=== PATIENT | male | born 2005 | race Caucasian/White ===

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

== ENCOUNTER 2024-01-06 14:00 | Emergency (ER) | payer MEDICAID ==
[~2024-01-06] VITALS: Ht 170.2 cm; Wt 73.0 kg
[~2024-01-06 14:00] MED LIST: PROT40 MT; SUCR1TAB MT
[2024-01-06 14:14] VITALS: O2SAT 100
[2024-01-06 14:39] LABS: CLARITY URINE CLEAR (CLEAR); COLOR URINE YELLOW (YELLOW); GLUCOSE URINE NEGATIVE (NEGATIVE); KETONES URINE NEGATIVE (NEGATIVE); LEUKOCYTE ESTERASE URINE NEGATIVE (NEGATIVE); NITRITE URINE NEGATIVE (NEGATIVE); OCCULT BLOOD URINE NEGATIVE (NEGATIVE); PROTEIN URINE NEGATIVE (NEGATIVE); SPECIFIC GRAVITY URINE 1.002 (1.005-1.030)
[2024-01-06] MEDS: SODIUM CHLORIDE 0.9% 1,000 ML IV ONE (15:00)
[2024-01-06] MEDS: PANTOPRAZOLE SODIUM 40 MG/VIAL IV ONE (15:00)
[2024-01-06] MEDS: ACETAMINOPHEN 325MG TABLET PO ONE (15:00)
[2024-01-06 16:49] LABS: BASOPHILS % 0.4 % (0.0-2.0); DIFFERENTIAL COMMENT 0; EOSINOPHILS % 0.1 % (0.0-5.0); HEMATOCRIT. 25.7 % (42.0-52.0); HEMOGLOBIN. 8.3 g/dL (14.0-18.0); LYMPHOCYTES % 9.6 % (20.0-50.0); MEAN CORPUSCULAR HEMOGLOBIN 24.6 pg (28.0-32.0); MEAN CORPUSCULAR HGB CONC 32.3 g/dL (31.0-37.0); MEAN CORPUSCULAR VOLUME 76.2 fL (80.0-94.0); MEAN PLATELET VOLUME 7.5 fl (7.4-10.4); MONOCYTES % 13.5 % (2.0-8.0); NEUTROPHILS % 76.4 % (40.0-76.0); PLATELET 386 x1000/uL (130-400); RED BLOOD CELL COUNT 3.37 mill/uL (4.7-6.1); RED CELL DISTRIBUTION WIDTH 15.5 % (11.6-14.6); WHITE BLOOD COUNT 7.6 x1000/uL (4.5-11.0)
[2024-01-06 16:58] LABS: PROTHROMBIN TIME 11.5 sec (9.6-11.0)
[2024-01-06 17:04] LABS: CHLORIDE 104 mEq/L (98-107); POTASSIUM 3.4 mEq/L (3.5-5.1); SODIUM 140 mEq/L (136-145)
[2024-01-06 17:05] LABS: CALCIUM 9.4 mg/dL (8.7-10.4); CARBON DIOXIDE 29 mEq/L (21-32)
[2024-01-06 17:10] LABS: GLUCOSE 107 mg/dL (70-105); UREA NITROGEN BLOOD 8 mg/dL (9-23)
[2024-01-06 17:12] LABS: ALANINE AMINOTRANSFERASE 24 IU/L (10-49); ALBUMIN 4.7 g/dL (3.2-4.8); ASPARTATE AMINOTRANSFERASE 25 IU/L (<34); BILIRUBIN DIRECT 0.4 mg/dL (<=3.0); PHOSPHORUS 2.6 mg/dL (2.5-4.9)
[2024-01-06 17:13] LABS: BILIRUBIN TOTAL 1.3 mg/dL (0.1-1.0)
[2024-01-06 17:23] LABS: ETHANOL BLOOD < 10 mg/dL (<10); TROPONIN I HIGH SENSITIVITY < 4 ng/L (3.0-53)
[2024-01-06 21:00] VITALS: BP 115/71; PULSE 86; RESP 18; TEMP 37.16964; O2SAT 100
[2024-01-06 21:07] LABS: TROPONIN I HIGH SENSITIVITY < 4 ng/L (3.0-53)
== END 2024-01-06 21:02 | disposition home or self-care (01) ==
LOC: ER 14:00
DX: K29.70 Gastritis, unspecified, without bleeding (principal); R25.2 Cramp and spasm
CPT/HCPCS: 80076; 80048; 81003; 80320; 83690; 83735; 84100; 85025; 85610; 86850; 86900; 86901; 84484; 36415; 71045; 70450; 74176; 93005; 96365; 99285; J2470; Z7610; G0480

== ENCOUNTER 2024-01-23 23:18 | Emergency (ER) | payer MEDICAID, OTHER ==
[~2024-01-23] VITALS: Ht 170.2 cm; Wt 73.0 kg
[2024-01-23 23:44] VITALS: O2SAT 100
[2024-01-24 00:06] VITALS: BP 143/91; PULSE 94; RESP 18; TEMP 98; O2SAT 100
[2024-01-24] MEDS ORDERED: BACITRACIN ZINC OINT UDPKT TOP ONE (00:30)
[2024-01-24] MEDS ORDERED: LIDOCAINE HCL/PF 1% 10 MG/ML 5ML VIAL INFIL ONE (00:30)
== END 2024-01-24 05:12 | disposition home or self-care (01) ==
LOC: ER 23:18
DX: S61.411A Laceration without foreign body of right hand, initial encounter (principal); D64.9 Anemia, unspecified; K92.2 Gastrointestinal hemorrhage, unspecified; Z79.899 Other long term (current) drug therapy; W25.XXXA Contact with sharp glass, initial encounter; Y93.89 Activity, other specified; Y92.89 Other specified places as the place of occurrence of the external cause; Y99.8 Other external cause status
CPT/HCPCS: 12001; 73130; 99283

== ENCOUNTER 2024-02-01 20:19 | Emergency (ER) | payer OTHER ==
[~2024-02-01] VITALS: Ht 170.2 cm; Wt 68.0 kg
[2024-02-01 20:25] VITALS: O2SAT 99
[2024-02-01 20:44] VITALS: BP 132/89; PULSE 105; RESP 16; TEMP 36.78072; O2SAT 99
== END 2024-02-01 20:44 | disposition home or self-care (01) ==
LOC: ER 20:19
DX: S61.216D Laceration without foreign body of right little finger without damage to nail, subsequent encounter (principal); D64.9 Anemia, unspecified; Z79.899 Other long term (current) drug therapy; X58.XXXD Exposure to other specified factors, subsequent encounter
CPT/HCPCS: 99281; Z7610

== ENCOUNTER 2024-02-25 15:20 | Emergency (ER) | payer MEDICAID, OTHER ==
[~2024-02-25] VITALS: Ht 170.2 cm; Wt 68.0 kg
[2024-02-25 17:15] VITALS: O2SAT 100
[2024-02-25 19:20] LABS: CLARITY URINE CLEAR (CLEAR); COLOR URINE YELLOW (YELLOW); GLUCOSE URINE NEGATIVE (NEGATIVE); KETONES URINE 3+ (NEGATIVE); LEUKOCYTE ESTERASE URINE NEGATIVE (NEGATIVE); NITRITE URINE NEGATIVE (NEGATIVE); OCCULT BLOOD URINE NEGATIVE (NEGATIVE); PROTEIN URINE 1+ (NEGATIVE); SPECIFIC GRAVITY URINE 1.029 (1.005-1.030)
[2024-02-25 19:49] LABS: BACTERIA URINE NONE SEEN; RBC URINE 0-2 /hpf (0-2); SQUAMOUS EPITHELIAL CELL URINE 2+ /lpf (RARE/1+); WBC URINE 0-2 /hpf (0-2)
[2024-02-25 20:27] VITALS: BP 122/71; PULSE 91; RESP 16; TEMP 36.66960; O2SAT 100
== END 2024-02-25 20:35 | disposition home or self-care (01) ==
LOC: ER 15:20
DX: N50.812 Left testicular pain (principal); K21.9 Gastro-esophageal reflux disease without esophagitis; J45.909 Unspecified asthma, uncomplicated; Z79.899 Other long term (current) drug therapy; W19.XXXA Unspecified fall, initial encounter; Y93.51 Activity, roller skating (inline) and skateboarding; Y92.89 Other specified places as the place of occurrence of the external cause; Y99.8 Other external cause status
CPT/HCPCS: 76870; 81003; 93976; 99284